=== PATIENT | female | born 1995 | race Two or more races ===

== ENCOUNTER 2016-09-13 22:50 | Emergency (ER) | payer SELFPAY | END 2016-09-13 23:57 | disposition left against medical advice (07) | LOC: ER 22:53 | DX: Z53.21 Procedure and treatment not carried out due to patient leaving prior to being seen by health care provider (principal) ==

== ENCOUNTER 2016-12-29 19:59 | Emergency (ER) | payer SELFPAY ==
[~2016-12-29] VITALS: Ht 165.1 cm; Wt 59.0 kg
[2016-12-29 19:59] VITALS: BP 118/74
--- NOTE | 2016-12-29 21:36 | NUR ---
Patient eloped from facility. ER MD notified.
== END 2016-12-29 21:37 | disposition left against medical advice (07) ==
LOC: ER 20:02
DX: S20.211A Contusion of right front wall of thorax, initial encounter (principal); V43.62XA Car passenger injured in collision with other type car in traffic accident, initial encounter; Y93.89 Activity, other specified; Y92.89 Other specified places as the place of occurrence of the external cause; Y99.9 Unspecified external cause status
CPT/HCPCS: 71010; 72170; 99284; A4606; Z7610

== ENCOUNTER 2017-01-02 02:37 | Emergency (ER) | payer SELFPAY ==
[~2017-01-02] VITALS: Ht 167.6 cm; Wt 61.2 kg
[2017-01-02 02:43] VITALS: BP 128/83
--- NOTE | 2017-01-02 02:51 | NUR ---
MD AT BEDSIDE AND PT IS REFUSING TO TALK TO MD AND REFUSING TO BE SEEN BY MD, PT WALKED OUT OF THE ER WITH A STEADY GAIT
== END 2017-01-02 02:56 | disposition left against medical advice (07) ==
LOC: ER 02:38
DX: Z53.21 Procedure and treatment not carried out due to patient leaving prior to being seen by health care provider (principal)
CPT/HCPCS: A4606; Z7610